=== PATIENT | female | born 1930 | race Caucasian/White ===

== ENCOUNTER 2017-06-01 13:50 | Emergency (ER) | payer OTHER, MEDICARE ==
[~2017-06-01] VITALS: Ht 149.9 cm; Wt 62.9 kg
[~2017-06-01 13:50] MED LIST: BACTRIM,SEPT1 TABLET PO; NAPROSYN500 MG PO; PROTONIX40 MG PO; TYLENOL WITH C1 EACH PO; VALIUM5 MG PO
[2017-06-01 14:40] LABS: HEMATOCRIT 43.3 % (36.0-46.0); HEMOGLOBIN 14.9 G/DL (11.9-15.5); MCH 32.2 PG (29.0-34.0); MCHC 34.4 G/DL (30.0-36.0); MCV 93.5 FL (83-99); PLATELET COUNT 207 K/uL (156-360); RBC DIS.WIDTH-CV 12.6 % (11.8-14.6); RBC DIS.WIDTH-SD 43.5 % (39-53); RED BLOOD COUNT 4.63 M/uL (3.80-5.20); WHITE BLOOD COUNT 13.6 K/uL (4.1-10.2)
[2017-06-01 14:54] LABS: CHLORIDE 109 mEq/L (99-109); POTASSIUM 5.2 mEq/L (3.7-5.4); SODIUM 144 mEq/L (136-147)
[2017-06-01 14:56] LABS: GLUCOSE 86 mg/dL (70-99)
[2017-06-01 15:00] LABS: CREATININE 0.7 mg/dL (0.6-1.3); GFR ESTIMATE (CALCULATED) > 59 mL/min/
[2017-06-01 15:01] LABS: UREA NITROGEN (BUN) 13 mg/dL (9-23)
[2017-06-01 15:08] LABS: TROP-I INTERPRETATION NEGATIVE; TROPONIN-I < 0.01 ng/mL (0.0-0.30)
[2017-06-01 16:26] LABS: TROP-I INTERPRETATION NEGATIVE; TROPONIN-I < 0.01 ng/mL (0.0-0.30)
[2017-06-01 17:11] VITALS: BP 136/100
== END 2017-06-01 17:17 | disposition home or self-care (01) ==
LOC: EME 13:50
PROVIDERS: Emergency Medicine
DX: R00.2 Palpitations (principal); J45.909 Unspecified asthma, uncomplicated; E11.9 Type 2 diabetes mellitus without complications; E78.5 Hyperlipidemia, unspecified; G25.0 Essential tremor; M85.80 Other specified disorders of bone density and structure, unspecified site; Z90.49 Acquired absence of other specified parts of digestive tract; Z96.659 Presence of unspecified artificial knee joint
CPT/HCPCS: 71046; 80048; 84484; 85027; 85379; 93005; 99281; 99285